=== PATIENT | male | born 1980 | race Caucasian/White ===

== ENCOUNTER 2024-10-23 12:18 | Emergency (ER) | payer BC, SELFPAY ==
[2024-10-23 12:21] VITALS: BP 131/96
[2024-10-23 13:13] VITALS: BP 121/92
--- NOTE | 2024-10-23 15:16 | ED.GENMED ---
History of Present Illness
General
Chief Complaint: Eye Problems
Time Seen by Provider: 10/23/24 15:02
History of Present Illness
History of Present Illness:
44-year-old male presents to the emergency department for evaluation of right eye vision loss over the past week. He states initially it was as if a 'snow globe' developed in front of his right eye however now he sees darkness essentially
everywhere with the exception of lights that are mildly eliminated in his vision. He reports having intermittent visual issues over the past several years but nothing similar to this. No headache or eye pain. Denies any extremity paresthesias or
weakness.
Past History
Past History
ED Past Medical History: None
ED Past Surgical History: Orthopedic
Social History
Tobacco: Smoker
Review of Systems
Review of Systems
Allergies reviewed?: Yes
All Other Systems: ROS reviewed and negative except as documented in HPI and ROS
Phy Exam
Physical Exam
Physical Exam:
GEN: Well appearing, NAD, WDWN
HEENT: Oral mucosa moist, no scleral icterus
Eyes: Pupillary response bilaterally, no a ferret pupillary defect, no conjunctival injection bilaterally. Right intraocular pressure averages 13, left intraocular pressure averages 11. Bedside ocular ultrasound reveals an echogenicity with a wavy
appearance across the entire vitreous with tethering to the optic disc consistent with retinal detachment
Cardiac: Regular rate
Lung: No respiratory distress, no tachypnea
MSK: No gross deformity or injuries
Skin: Good color, no pallor or jaundice, no rashes
Neuro: AO x3, moves all extremities freely, cranial nerves II through XII grossly intact, normal extraocular motion bilaterally
Psych: Calm, cooperative
Course
Vital Signs
Initial and Last Documented VS:
Initial Vital Signs
Temp Pulse Resp BP Pulse Ox
98.4 F 104 18 131/96 98
10/23/24 12:21 10/23/24 12:21 10/23/24 12:21 10/23/24 12:21 10/23/24 12:21
Last Documented Vital Signs
Temp Pulse Resp BP Pulse Ox
97.8 F 74 18 135/97 99
10/23/24 15:29 10/23/24 16:52 10/23/24 16:52 10/23/24 16:52 10/23/24 16:52
MDM/Problems Addressed
MDM/Problems Addressed:
Bedside ultrasound confirms complete retinal detachment. I contacted ophthalmology on-call at the [facility] and the patient was transferred via private vehicle to the ED for urgent ophthalmology evaluation and definitive management
*Pulse Oximetry
SaO2: 99
Oxygen Mode of Delivery: Room air
Patient hypoxic: no
*Critical Care Note
Total Time (30-74mins, 75-104mins- exclusive of procedures): Not Applicable
ED Attending Note
-
Portions of this chart may have been created with voice recognition software.� Occasional wrong word or��sound alike� substitutions may have occurred due to the inherent limitations of voice recognition software.
Discharge Plan
Departure
Patient Disposition: Acute Care Hospital
Date of Disposition: 10/23/24
Time of Disposition: 16:41
Discharge Problem:
Retinal detachment
Prescriptions:
No Action
buspirone [BuSpar] 5 mg Tablet
5 mg PO BID
acetaminophen [Tylenol Extra Strength] 500 mg Tablet
500 mg PO Q6HPRN PRN (Reason: MILD PAIN)
bupropion HCl [Wellbutrin XL] 150 mg Tablet Extended Release 24 Hr
150 mg PO DAILY
Referrals:
Lottie Jang PA-C [Family Provider, Family Practice]
Activity Restrictions/Additional Instructions:
[facility]
Other hospital: [facility]
I certify that the patient requires transfer: Yes
Discussed case with accepting physician: Aidan
Reason for transfer: higher level of care and availability of service
Interventions
Interventions:
*Risk Screen - Suicide Last Done: 10/23/24 12:21
*General Assessment Last Done: 10/23/24 12:21
*Neglect/Abuse Screening Last Done: 10/23/24 12:21
*ED- Fall Risk Assessment Last Done: 10/23/24 13:11
*ED COVID-19 Vaccine History Last Done: 10/23/24 13:11
*Nursing Disposition Last Done: 10/23/24 17:03
Discharge Date and Time
Discharge Date/Time: 10/23/24 17:06
Print Language: YI
[2024-10-23 15:29] VITALS: BP 126/82
[2024-10-23 16:52] VITALS: BP 135/97
== END 2024-10-23 17:06 | disposition short-term general hospital (02) ==
LOC: EMR 12:18
PROVIDERS: EMERGENCY PHYSICIAN Emergency Medicine; FAMILY PHYSICIAN Physician Assistant
DX: H33.21 Serous retinal detachment, right eye (principal); F17.200 Nicotine dependence, unspecified, uncomplicated
CPT/HCPCS: 99285